=== PATIENT | female | born 1990 | race Caucasian/White ===

== ENCOUNTER 2023-12-22 18:50 | Emergency (ER) | payer OTHER, SELFPAY ==
[2023-12-22 18:51] VITALS: BP 149/92
--- NOTE | 2023-12-22 20:22 | ED.GENMED ---
History of Present Illness
<YOANA Vigil (Lenka) - Last Filed: 12/22/23 22:28>
General
Chief Complaint: Skin Surface Trauma
Source: patient
Time Seen by Provider: 12/22/23 20:21
Nursing documentation reviewed up to this point in time: agreed with
History of Present Illness
History of Present Illness:
Pt is a 33yo female who presents with groin injury after falling off a ladder onto a PVC pipe around 1830. Pt states she was up about 6-8 ft on a ladder when the ladder slipped out from under her and she landed on a sharp end of a broken PVC pipe.
It pierced her left pubic region and bled. Pt applied pressure, noted the wound was deep, and came to the ED. Not actively bleeding on exam. No dizziness, lightheadedness, LOC, injury elsewhere, numbness/tingling to extremities, able to ambulate and
move her lower extremities, able to urinate. No vaginal injury, no vaginal bleeding. Denies saddle anesthesia.
Pt believes she had DTap with her last 4 years ago.
She is on day 3 of Macrobid for a UTI.
Past History
<YOANA Vigil (Lenka) - Last Filed: 12/22/23 22:28>
Past History
ED Past Medical History: Psychiatric (Bipolar, depression) and Other (IBS, migraines, anemia)
ED Past Surgical History: Other (Gastric bypass)
Family History
Family History: Other (noncontributory)
Phy Exam
<YOANA Vigil (Lenka) - Last Filed: 12/22/23 22:28>
General Physical Exam
General Presentation: well appearing and no apparent distress
General age: appears stated age
General Skin: warm and dry
General Habitus: normal
General Mental: alert
General Hydration: appears well hydrated
Cardiovascular Exam
Cardiovascular Exam: regular rate/rhythm and normal peripheral pulses
Pulmonary Exam
Pulmonary Exam: lungs clear and no respiratory distress
Neurological Exam
Neurological Exam: alert, oriented x3 and speech normal
Skin Exam
Skin Exam: laceration (2.5 cm deep laceration with good approximation to left pubic wall)
Course
<ST Vigil (Lenka)WV - Last Filed: 12/22/23 22:28>
Vital Signs
Initial and Last Documented VS:
Initial Vital Signs
Temp Pulse Resp BP Pulse Ox
98.8 F 110 16 149/92 99
12/22/23 18:51 12/22/23 18:51 12/22/23 18:51 12/22/23 18:51 12/22/23 18:51
Last Documented Vital Signs
Temp Pulse Resp BP Pulse Ox
98.8 F 85 16 130/81 99
12/22/23 18:51 12/22/23 21:21 12/22/23 22:01 12/22/23 21:21 12/22/23 21:21
<Jorge Blanton DO - Last Filed: 12/22/23 22:16>
Vital Signs
Initial and Last Documented VS:
Initial Vital Signs
Temp Pulse Resp BP Pulse Ox
98.8 F 110 16 149/92 99
12/22/23 18:51 12/22/23 18:51 12/22/23 18:51 12/22/23 18:51 12/22/23 18:51
Last Documented Vital Signs
Temp Pulse Resp BP Pulse Ox
98.8 F 85 16 130/81 99
12/22/23 18:51 12/22/23 21:21 12/22/23 22:01 12/22/23 21:21 12/22/23 21:21
Procedures
<Jorge Blanton DO - Last Filed: 12/22/23 22:16>
Laceration Closure
Left Lateral Groin:
Status of Wound: clean
Size of Wound in cm: 2
Description of Wound Edges: sharp
Preparation: cleaned with soap & water and cleaned with saline
Anesthesia: 1% Lidocaine
Revision/Debridement: routine- no revision
Wound exploration: explored to base- no FB
Type of Closure: single layer closure
Skin Closure Material: 5-0 nylon
Number of sutures: 3
Additional information:
Patient tolerated procedure well with no immediate adverse effects. Tetanus shot up-to-date. Procedure was performed by PA student under my direct supervision.
<YOANA Vigil (Lenka) - Last Filed: 12/22/23 22:28>
MDM/Problems Addressed
Differential Diagnosis Includes:
2.5 cm laceration to left pubic wall, well approximated, sharp borders, deep. Will require good cleaning and sutures.
<YOANA Vigil (Lenka) - Last Filed: 12/22/23 22:28>
*Critical Care Note
Total Time (30-74mins, 75-104mins- exclusive of procedures): Not Applicable
<YOANA Vigil (Lenka) - Last Filed: 12/22/23 22:28>
Update Note
Update Note:
2144 - laceration numbed
ED Attending Note
<YOANA Vigil (Lenka) - Last Filed: 12/22/23 22:28>
-
Portions of this chart may have been created with voice recognition software.� Occasional wrong word or��sound alike� substitutions may have occurred due to the inherent limitations of voice recognition software.
<Jorge Blanton DO - Last Filed: 12/22/23 22:16>
ED Attending Note
Patient seen and examined by attending physician: Yes
I performed the substantive portion of visit, reviewed & personally made and approve the management plan that is documented in note by myself or CAROLYN.: Yes
ED Attending Note:
33-year-old female presents with laceration to her left lateral groin. Tetanus shot up-to-date. She states that she cut herself on a piece of sharp PVC. Wound is mostly superficial with no foreign body. Patient was seen in conjunction with the
PA student. I have reviewed and agree with the history and treatment plan presented. On my independent physical exam, patient is awake, alert, and oriented x3 minimal acute distress. 2 cm linear laceration. See procedure note. Wound
approximated nicely.
Discharge Plan
Departure
Patient Disposition: Home (Routine Discharge)
Date of Disposition: 12/22/23
Time of Disposition: 22:13
Patient with high blood pressure during this ER visit?: Yes
Condition: Good
Discharge Problem:
Laceration
Instructions: Wound Care (DC), Laceration Repair With Stitches (DC), BLOOD PRESSURE
Prescriptions:
No Action
bupropion HCl 150 MG tablet extended release 24 hr
300 mg PO DAILY
calcium carbonate-vitamin D3 [Calcium + D] 600 mg-5 mcg (200 unit) Tablet
1 tab PO DAILY
B-complex with vitamin C [Vitamin B Complex-C] Tablet
1 tab PO DAILY
[id number]-ferrous fumarate-FA [] 28 mg iron- 800 mcg Tablet
1 tab PO DAILY
Referrals:
Venu Cotto MD [Family Provider] -
Activity Restrictions/Additional Instructions:
Sutures can be removed in 7 days.
It was a pleasure meeting you and taking part in your care. We hope for your continued healing and wellness.
Please read discharge instructions in their entirety. However, they are for general education and may not describe your exact diagnosis at discharge. Information on your ER visit and medical conditions were discussed with you along with appropriate
follow up information...
If indicated, please take your medications as instructed and indicated on discharge paperwork.
Please schedule a follow up appointment as directed. Call to schedule an appointment
Please return to the emergency department with ANY change in, persisting, or worsening of symptoms. If any of your symptoms do not improve, or persist, or become more severe within 6-12 hours, please return to the emergency department for further
care.
Please return to the emergency department if you develop a headache, neck pain/stiffness, fever greater than 100.4F, chest pain, shortness of breath, persistent nausea, vomiting, slurred speech, difficulty walking, numbness/tingling, weakness, signs
of infection or any other symptoms that are worrisome to you.
If you have any questions or concerns please do not hesitate to call the Hospital at or E-mail me directly at [email or web address]
Interventions
Interventions:
*Risk Screen - Suicide Last Done: 12/22/23 18:51
*General Assessment Last Done: 12/22/23 18:51
*Neglect/Abuse Screening Last Done: 12/22/23 18:51
ED- Fall Risk Assessment Last Done: 12/22/23 22:15
*ED COVID-19 Vaccine History Last Done: 12/22/23 20:04
*Nursing Disposition Last Done: 12/22/23 22:15
ED-Skin Assessment Last Done: 12/22/23 20:04
Discharge Date and Time
Discharge Date/Time: 12/22/23 22:23
Print Language: PASHTO
[2023-12-22 21:21] VITALS: BP 130/81
== END 2023-12-22 22:23 | disposition home or self-care (01) ==
LOC: EMR 18:50
PROVIDERS: EMERGENCY PHYSICIAN Student in an Organized Health Care Education/Training Program; FAMILY PHYSICIAN Family Medicine
DX: S31.010A Laceration without foreign body of lower back and pelvis without penetration into retroperitoneum, initial encounter (principal); W11.XXXA Fall on and from ladder, initial encounter; F31.9 Bipolar disorder, unspecified; K58.9 Irritable bowel syndrome, unspecified; Z87.440 Personal history of urinary (tract) infections; Z98.84 Bariatric surgery status
CPT/HCPCS: 99282; 12001